=== PATIENT | male | born 1960 | race Hispanic/Latino ===

== ENCOUNTER 2022-11-04 15:07 | Inpatient (IN) | payer BC ==
[~2022-11-04] VITALS: Ht 175.3 cm; Wt 87.3 kg
[~2022-11-04 15:07] MED LIST: ALBU8.5H8 IH; AMLO-257 PO; APIX2.5T PO; Buspirone Hcl PO; CEFU500T67 PO; LETR2.5T7 PO; LEVO75TA4 PO; PANT40TA55 PO; SIMV10TA97 PO
[2022-11-04 16:00] LABS: BASOPHILS # (AUTO) 0.04 K/uL (0.00-0.20); BASOPHILS % (AUTO) 0.4 % (0.0-5.0); EOSINOPHILS # (AUTO) 0.02 K/uL (0.00-0.70); EOSINOPHILS % (AUTO) 0.2 % (0.0-8.0); HEMATOCRIT 26.4 % (42-54); IMMATURE GRANULOCYTE ABSOLUTE 0.17 K/uL (0-1); LYMPHOCYTES # (AUTO) 1.6 K/uL (1.0-4.8); LYMPHOCYTES % (AUTO) 14.3 % (21.0-51.0); MEAN CORPUSCULAR HEMOGLOBIN 30.5 pg (27.0-33.0); MEAN CORPUSCULAR VOLUME 84.9 fL (79-99); MONOCYTES # (AUTO) 0.6 K/uL (0.1-1.0); MONOCYTES % (AUTO) 5.1 % (3.0-13.0); NEUTROPHILS % (AUTO) 78.5 % (40.0-77.0); PLATELET COUNT (AUTO) 286 K/uL (130-400); RED BLOOD CELL COUNT(AUTO) 3.11 MIL/uL (4.50-6.20); RED CELL DISTRIBUTION WIDTH 13.6 % (11.0-15.5); WHITE BLOOD COUNT (AUTO) 11.4 K/uL (4.8-10.8)
[2022-11-04 16:10] LABS: POTASSIUM 3.9 mmol/L (3.5-5.1)
[2022-11-04 16:21] LABS: ALBUMIN 3.2 g/dL (3.5-5.0); BILIRUBIN,TOTAL 0.4 mg/dL (0.2-1.0); MAGNESIUM 1.9 mg/dL (1.80-2.40); TOTAL PROTEIN, SERUM 6.4 g/dL (6.0-8.3)
[2022-11-04] MEDS ORDERED: IOHEXOL-350 75 ML VIAL IV ONE (19:21)
[2022-11-04] MEDS ORDERED: ONDANSETRON 4MG INJ IV PRN (23:00)
[2022-11-04] MEDS ORDERED: ACETAMINOPHEN 325 MG TAB PO PRN ×2 (23:00)
[2022-11-04 23:36] LABS: HEMATOCRIT 24.5 % (42-54)
[2022-11-05] VITALS (21 sets, daily range): BP systolic 109–138; BP diastolic 65–85; PULSE 64–92; RESP 15–20
[2022-11-05] MEDS: LACTATED RINGERS 1000ML 1,000 ML IV SCH ×2 (00:21→18:06)
[2022-11-05] MEDS ORDERED: ASPI-1026 PO (00:59)
[2022-11-05] MEDS ORDERED: LISI1TAB49 PO (01:01)
[2022-11-05 04:25] LABS: HEMATOCRIT 23.3 % (42-54); MEAN CORPUSCULAR HEMOGLOBIN 30.3 pg (27.0-33.0); MEAN CORPUSCULAR HGB CONC 35.6 g/dL (32.0-36.0); RED BLOOD CELL COUNT(AUTO) 2.74 MIL/uL (4.50-6.20); RED CELL DISTRIBUTION WIDTH 13.7 % (11.0-15.5); WHITE BLOOD COUNT (AUTO) 9.2 K/uL (4.8-10.8)
[2022-11-05 04:43] LABS: BILIRUBIN,TOTAL 0.4 mg/dL (0.2-1.0); CREATININE 0.9 mg/dL (0.5-1.5); POTASSIUM 3.4 mmol/L (3.5-5.1); TOTAL PROTEIN, SERUM 5.8 g/dL (6.0-8.3)
[2022-11-05 04:56] LABS: INR 0.96 (0.85-1.15); PROTHROMBIN TIME 11.2 SEC (9.6-11.6)
[2022-11-05 04:57] LABS: PARTIAL THROMBOPLASTIN TIME 22.9 SEC (26.3-35.5)
[2022-11-05] MEDS: PANTOPRAZOLE 40 MG/VIAL IVP SCH ×2 (08:23→20:09)
[2022-11-05] MEDS ORDERED: LIDOCAINE HCL 1% 20 ML VIAL ONE (12:56)
[2022-11-05] MEDS ORDERED: PROPOFOL 10 MG/ML 20ML VIAL IV ONE (12:56)
[2022-11-05 14:22] LABS: HEMATOCRIT 22.5 % (42-54)
[2022-11-05] MEDS ORDERED: PEG 3350/NA SULF,BICARB,CL/KCL 4000 ML SOLN PO ONE (15:00)
[2022-11-05] MEDS ORDERED: LACTULOSE 20 GM/30 ML UDCUP PO ONE (15:00)
[2022-11-05] MEDS ORDERED: BISACODYL 5 MG TABLET.DR PO ONE (16:00)
[2022-11-05 16:57] LABS: HEMATOCRIT 23.9 % (42-54)
[2022-11-05] MEDS ORDERED: MAGNESIUM 2GM PREMIX 50ML 50 ML IV PRN (17:00)
[2022-11-05] MEDS ORDERED: POTASSIUM CHLORIDE 10% ELIXIR 20 MEQ/15 ML UDCUP PO PRN (17:00)
[2022-11-05] MEDS ORDERED: POTASSIUM CHLORIDE 20MEQ/100ML 100 ML IV PRN (17:00)
[2022-11-05] MEDS ORDERED: BISACODYL 5 MG TABLET.DR PO SCH (20:00)
[2022-11-06] VITALS (24 sets, daily range): BP systolic 99–129; BP diastolic 50–92; PULSE 62–84; RESP 15–20
[2022-11-06 05:47] LABS: BASOPHILS # (AUTO) 0.03 K/uL (0.00-0.20); BASOPHILS % (AUTO) 0.5 % (0.0-5.0); EOSINOPHILS # (AUTO) 0.12 K/uL (0.00-0.70); EOSINOPHILS % (AUTO) 1.9 % (0.0-8.0); HEMATOCRIT 21.4 % (42-54); IMMATURE GRANULOCYTE ABSOLUTE 0.05 K/uL (0-1); LYMPHOCYTES # (AUTO) 1.5 K/uL (1.0-4.8); LYMPHOCYTES % (AUTO) 23.1 % (21.0-51.0); MEAN CORPUSCULAR HGB CONC 34.6 g/dL (32.0-36.0); MEAN CORPUSCULAR VOLUME 86.6 fL (79-99); MONOCYTES # (AUTO) 0.5 K/uL (0.1-1.0); MONOCYTES % (AUTO) 7.3 % (3.0-13.0); NEUTROPHILS # (AUTO) 4.2 K/uL (1.8-7.7); NEUTROPHILS % (AUTO) 66.4 % (40.0-77.0); PLATELET COUNT (AUTO) 186 K/uL (130-400); RED BLOOD CELL COUNT(AUTO) 2.47 MIL/uL (4.50-6.20); RED CELL DISTRIBUTION WIDTH 13.9 % (11.0-15.5); WHITE BLOOD COUNT (AUTO) 6.3 K/uL (4.8-10.8)
[2022-11-06 05:54] LABS: ALBUMIN 2.7 g/dL (3.5-5.0); BILIRUBIN,TOTAL 0.4 mg/dL (0.2-1.0); CREATININE 0.8 mg/dL (0.5-1.5); POTASSIUM 3.2 mmol/L (3.5-5.1); TOTAL PROTEIN, SERUM 5.3 g/dL (6.0-8.3)
[2022-11-06] MEDS: KCL 20 MEQ ERTAB PO PRN (06:12)
[2022-11-06] MEDS ORDERED: PHARMACY COMMUNICATION MISC SCH (09:30)
[2022-11-06] MEDS: PANTOPRAZOLE 40 MG/VIAL IVP SCH ×2 (09:38→20:18)
[2022-11-06] MEDS ORDERED: PROPOFOL 10 MG/ML 20ML VIAL IV ONE (13:45)
[2022-11-06] MEDS: LACTATED RINGERS 1000ML 1,000 ML IV SCH (15:00)
[2022-11-06] MEDS: AMOXICILLIN 500 MG CAPSULE PO SCH (20:18)
[2022-11-06] MEDS: LANSOPRAZOLE 15 MG CAPSULE.DR PO SCH (20:18)
[2022-11-06] MEDS: CLARITHROMYCIN 500 MG TABLET PO SCH (20:18)
[2022-11-07] VITALS: BP 126/67; PULSE 97; RESP 18
[2022-11-07 03:47] LABS: BASOPHILS # (AUTO) 0.03 K/uL (0.00-0.20); BASOPHILS % (AUTO) 0.4 % (0.0-5.0); EOSINOPHILS # (AUTO) 0.14 K/uL (0.00-0.70); EOSINOPHILS % (AUTO) 1.9 % (0.0-8.0); HEMATOCRIT 21.4 % (42-54); LYMPHOCYTES # (AUTO) 1.5 K/uL (1.0-4.8); LYMPHOCYTES % (AUTO) 20.2 % (21.0-51.0); MEAN CORPUSCULAR HEMOGLOBIN 30.7 pg (27.0-33.0); MEAN CORPUSCULAR HGB CONC 34.6 g/dL (32.0-36.0); MEAN CORPUSCULAR VOLUME 88.8 fL (79-99); MONOCYTES # (AUTO) 0.7 K/uL (0.1-1.0); NEUTROPHILS # (AUTO) 4.9 K/uL (1.8-7.7); NEUTROPHILS % (AUTO) 67.1 % (40.0-77.0); NUCLEATED RED BLOOD CELLS 0.3 % (0.0-0.19); PLATELET COUNT (AUTO) 207 K/uL (130-400); RED BLOOD CELL COUNT(AUTO) 2.41 MIL/uL (4.50-6.20); RED CELL DISTRIBUTION WIDTH 14.2 % (11.0-15.5); WHITE BLOOD COUNT (AUTO) 7.2 K/uL (4.8-10.8)
[2022-11-07 04:03] LABS: ALBUMIN 2.6 g/dL (3.5-5.0); BILIRUBIN,TOTAL 0.2 mg/dL (0.2-1.0); CREATININE 0.7 mg/dL (0.5-1.5); POTASSIUM 3.5 mmol/L (3.5-5.1); TOTAL PROTEIN, SERUM 5.2 g/dL (6.0-8.3)
[2022-11-07 04:08] VITALS: BP 118/64; PULSE 77; RESP 18
[2022-11-07] MEDS: KCL 20 MEQ ERTAB PO PRN (04:16)
[2022-11-07 08:18] VITALS: BP 114/65; PULSE 69; RESP 18
[2022-11-07] MEDS: PANTOPRAZOLE 40 MG/VIAL IVP SCH (08:54)
[2022-11-07] MEDS: LANSOPRAZOLE 15 MG CAPSULE.DR PO SCH (08:55)
[2022-11-07] MEDS: CLARITHROMYCIN 500 MG TABLET PO SCH (08:55)
[2022-11-07] MEDS: AMOXICILLIN 500 MG CAPSULE PO SCH (08:55)
[2022-11-07 09:00] VITALS: O2SAT 98
[2022-11-07] MEDS ORDERED: CLAR-44 PO (09:15)
[2022-11-07] MEDS ORDERED: AMOX500C2 PO (09:15)
[2022-11-07] MEDS ORDERED: Lansoprazole PO (09:15)
[2022-11-07] MEDS ORDERED: PANT40TA55 PO (09:15)
[2022-11-07] MEDS ORDERED: DOCU100T PO (09:20)
[2022-11-07] MEDS ORDERED: FERR-72 PO (09:20)
== END 2022-11-07 12:03 | disposition home or self-care (01) | DRG 377 ==
LOC: EDH 15:07 → EDHIP 22:58 → 4DH 11-05 01:36
PROVIDERS: ADMIT Hospitalist; ATTEND Hospitalist
PROC: 0DB98ZX Excision of Duodenum, Via Natural or Artificial Opening Endoscopic, Diagnostic (ICD-10-PCS; 2022-11-05)
PROC: 0DB78ZX Excision of Stomach, Pylorus, Via Natural or Artificial Opening Endoscopic, Diagnostic (ICD-10-PCS; 2022-11-05)
PROC: 0DB38ZX Excision of Lower Esophagus, Via Natural or Artificial Opening Endoscopic, Diagnostic (ICD-10-PCS; 2022-11-05)
PROC: 0DJD8ZZ Inspection of Lower Intestinal Tract, Via Natural or Artificial Opening Endoscopic (ICD-10-PCS; principal; 2022-11-06)
DX: K57.31 Diverticulosis of large intestine without perforation or abscess with bleeding (principal); K21.01 Gastro-esophageal reflux disease with esophagitis, with bleeding; D62 Acute posthemorrhagic anemia; B96.81 Helicobacter pylori [H. pylori] as the cause of diseases classified elsewhere; K22.11 Ulcer of esophagus with bleeding; K26.4 Chronic or unspecified duodenal ulcer with hemorrhage; K63.81 Dieulafoy lesion of intestine; D64.9 Anemia, unspecified; I11.9 Hypertensive heart disease without heart failure; D72.829 Elevated white blood cell count, unspecified; K44.9 Diaphragmatic hernia without obstruction or gangrene; K59.00 Constipation, unspecified; K64.8 Other hemorrhoids; D72.89 Other specified disorders of white blood cells; Z82.49 Family history of ischemic heart disease and other diseases of the circulatory system; Z87.11 Personal history of peptic ulcer disease; Z83.3 Family history of diabetes mellitus
CPT/HCPCS: 36415; 43239; 45378; 71045; 74177; 80053; 82270; 82550; 83735; 83874; 84484; 85014; 85018; 85025; 85027; 85610; 85730; 86677; 86850; 86900; 86901; 88305; 88312; 93005; A4606; C9113; G0378; J2704; J3480; J7030; Q9967; A4215; A4216; A4221; A4222; A4223; A4620; A4663; A7002; J3490